=== PATIENT | male | born 1965 | race Caucasian/White ===

== ENCOUNTER 2024-11-15 09:40 | Emergency (ER) | payer BC, OTHER ==
[~2024-11-15] VITALS: Ht 177.8 cm; Wt 79.0 kg
[2024-11-15 09:43] VITALS: BP 144/84; PULSE 88; RESP 18; TEMP 36.9; O2SAT 97
== END 2024-11-15 10:35 | disposition left against medical advice (07) ==
LOC: ER 09:40
DX: R05.9 Cough, unspecified (principal); Z53.21 Procedure and treatment not carried out due to patient leaving prior to being seen by health care provider